=== PATIENT | male | born 1960 | race Caucasian/White ===

== ENCOUNTER 2021-03-09 05:16 | Emergency (ER) | payer MEDICAID, MEDICARE, SELFPAY ==
[2021-03-09 05:46] LABS: #Lymphocytes 0.9 thou/uL (1.20-3.40); #Monocytes 0.3 thou/uL (0.11-0.59); #Neutrophils 8.3 thou/uL (1.40-6.50); %Basophils 0.4 % (0.0-1.0); %Eosinophils 0.1 % (0.0-10.0); %Lymphocytes 8.4 % (21.0-51.0); %Monocytes 3.6 % (0.0-10.0); %Neutrophils 87.6 % (42.0-75.0); Mean Corpuscular HGB CONC 31.6 g/dL (32.0-36.0); Mean Corpuscular Hemoglobin 29.9 pg (27.0-31.0); Mean Corpuscular Volume 94.7 fL (78.0-98.0); Mean Platelet Volume 9.3 fL (7.4-10.4); Platelet Count 233 thou/uL (130-400); RBC Distribution Width 12.8 % (11.5-14.5); Red Blood Cell (RBC) Count 6.61 mill/uL (4.70-6.10); White Blood Cell (WBC) Count 9.2 thou/uL (4.8-10.8)
[2021-03-09] MEDS ORDERED: Sodium Chloride 0.9% 1,000 ML ONE (05:47)
[2021-03-09 05:49] LABS: Bilirubin Small (Negative); Blood, Urine Negative (Negative); Clarity Clear (Clear); Glucose, Urine (Dipstick) Negative (Negative); Ketone, Urine 40 mg/dL (Negative); Leukocyte Negative (Negative); Nitrite Negative (Negative); Protein, Urine (Dipstick) 30 mg/dL (Neg-Trace); pH, Urine 5.5 (5.0-9.0)
[2021-03-09 05:50] LABS: Specific Gravity, Urine 1.027 (1.002-1.036)
[2021-03-09 05:58] LABS: RBC/HPF 0-3 HPF (0-3); Squamous Epithelial 0-3 HPF (0-3)
[2021-03-09 05:59] LABS: ALT (SGPT) 9 U/L (8-55); AST (SGOT) 13 U/L (5-34); Albumin 4.5 g/dL (3.4-4.8); Alkaline Phosphatase 99 U/L (40-110); Anion Gap 16 mmol/L (10-20); BUN (Urea Nitrogen) 10 mg/dL (8.4-25.7); Bilirubin, Total 0.8 mg/dL (0.2-1.2); Calc. Creatinine Clearance 0 mL/min (70-130); Calcium 9.7 mg/dL (7.8-10.44); Carbon Dioxide 26 mmol/L (23-31); Chloride 96 mmol/L (98-107); Globulin 3.3 g/dL (2.4-3.5); Glucose 121 mg/dL (80-115); Potassium 4.5 mmol/L (3.5-5.1); Protein, Total 7.8 g/dL (5.8-8.1); Sodium 133 mmol/L (136-145)
[2021-03-09] MEDS ORDERED: Morphine 4 MG/ML VIAL ONE (07:12)
[2021-03-09] MEDS ORDERED: Ondansetron PF 4 MG/2 ML Vial ONE (07:12)
[2021-03-09] MEDS ORDERED: Piperacillin/Tazobactam 4.5 GM VIAL ONE (08:37)
[2021-03-09] MEDS ORDERED: Sodium Chloride 0.9% 100 ML ONE (08:38)
[2021-03-09] MEDS ORDERED: Iopamidol 370 76% 100 ML VIAL ONE (09:00)
== END 2021-03-09 09:03 | disposition short-term general hospital (02) ==
LOC: NAV ERS 05:16
DX: I71.4 Abdominal aortic aneurysm, without rupture (principal); K52.9 Noninfective gastroenteritis and colitis, unspecified; J43.9 Emphysema, unspecified; E78.5 Hyperlipidemia, unspecified; I10 Essential (primary) hypertension; F17.210 Nicotine dependence, cigarettes, uncomplicated
CPT/HCPCS: 74177; 80053; 81003; 81015; 83605; 85025; 93005; 94760; 96365; 96375; J2270; J2405; J2543; J3490; J7050; Q9967